=== PATIENT | female | born 1990 | race Caucasian/White ===

== ENCOUNTER 2017-03-04 20:49 | Emergency (ER) | payer BC ==
[~2017-03-04] VITALS: Ht 167.6 cm; Wt 55.8 kg
[2017-03-04 20:56] VITALS: BP 120/94
--- NOTE | 2017-03-04 21:27 | NUR ---
PT TAKEN TO ULTRASOUND FROM [facility]
--- NOTE | 2017-03-04 22:11 | NUR ---
PT RETURN FROM ULTRASOUND TO LOBBY
[2017-03-04 22:34] LABS: APPEARANCE,URINE CLEAR (CLEAR); BILIRUBIN,URINE NEGATIVE (NEGATIVE); BLOOD, URINE 1+ (NEGATIVE); COLOR,URINE YELLOW (YELLOW); LEUKOCYTE ESTERASE ,URINE NEGATIVE (NEGATIVE); NITRITE, URINE NEGATIVE (NEGATIVE); PH,URINE 6.5 (5.0-9.0); PROTEIN,URINE NEGATIVE (NEGATIVE); UGLUCOSE NEGATIVE (NEGATIVE); UROBILINOGEN,URINE 0.2 EU/dL (0.2 - 1)
--- NOTE | 2017-03-04 22:42 | NUR ---
PT TAKEN TO BED 7
--- NOTE | 2017-03-04 22:45 | NUR ---
27 YO FEMALE PATIENT PRESENTS TO ED WITH C/O SPOTTING BLOOD . PT STATES SHES 13 WEEKS PREG. WITH DUE DATE OF 09/04/17 . DENIES N/V/D; SKIN IS PINK/WARM/DRY; AAOX4 WITH EVEN AND STEADY GAIT; LUNGS CLEAR BL; HR EVEN AND REGULAR; PT DENIES ANY FEVER, CP, SOB, OR COUGH AT THIS TIME; PATIENT STATES PAIN OF 5/10 AT THIS TIME; VSS; PATIENT POSITIONED FOR COMFORT; HOB ELEVATED; BEDRAILS UP X2; BED DOWN. ER MD MADE AWARE OF PT STATUS.
[2017-03-04 22:49] LABS: BACTERIA,URINE OCCASSIONAL /HPF (None Seen); RBC,URINE 0-5 (RARE) /HPF (0-5); SQUAMOUS EPITHELIAL CELL,UR 0-3 (FEW) /LPF (0-3 (FEW)); WBC,URINE 0-5 (RARE) /HPF (0-5)
--- NOTE | 2017-03-04 22:55 | NUR ---
pT STATES SHE REFUSED LAB WORK.
--- NOTE | 2017-03-04 23:15 | NUR ---
PT UP TO VOID. C/O MORE VAGINAL BLEEDING. PT GIVEN OB PADS.
--- NOTE | 2017-03-04 23:17 | NUR ---
Dr. Salinas evaluating patient at bedside.
--- NOTE | 2017-03-04 23:46 | NUR ---
LAB AT BEDSIDE. PT STILL REFUSING LAB WORK. MADE AWARE BY DISTRIBUTOR OF DIRECTORIES.
[2017-03-05 00:10] VITALS: BP 116/75
--- NOTE | 2017-03-05 00:10 | NUR ---
Patient does not wish to proceed with medical care recommended by . Patient given information related to possible complications, up to and including , which could occur as a result of leaving hospital at this time. Patient verbalizes understanding of risks involved leaving against medical advice. Patient has signed AMA form.
== END 2017-03-05 00:10 | disposition left against medical advice (07) ==
LOC: MED 20:49
DX: O20.8 Other hemorrhage in early pregnancy (principal); O34.81 Maternal care for other abnormalities of pelvic organs, first trimester; N83.202 Unspecified ovarian cyst, left side; Z3A.12 12 weeks gestation of pregnancy
CPT/HCPCS: 76817; 81001; 81025; 99285; Q0092